=== PATIENT | male | born 1990 | race Caucasian/White ===

== ENCOUNTER 2017-02-16 10:24 | Emergency (ER) | payer SELFPAY ==
[2017-02-16 11:14] VITALS: BP 130/94
--- NOTE | 2017-02-16 11:15 | UC ---
Dental HPI - HPI Summary HPI Summary: 26 y/o WM accompanied by girlfriend presents with right lower tooth pain. He says he's had a tooth abscess here at least 5 times in last year and a half. He is aware he needs to see a dentist, but at this time he does not have the insurance or financial capacity to do so. Today he tells me that the pain began 3 days ago and has been increasing in intensity. He is able to eat and drink, but this is very painful for him. Denies fever, chills, SOB, chest pain, abdominal pain, n/v/d/c - History of Current Complaint Chief Complaint: UCDentalProblem Stated Complaint: ABCESSES IN MOUTH Hx Obtained From: Patient Onset/Duration: Gradual Onset Severity: Severe Pain Intensity: 9 Pain Scale Used: 0-10 Numeric - Allergies/Home Medications Allergies/Adverse Reactions: Allergies Allergy/AdvReac Type Severity Reaction Status Date / Time No Known Allergies Allergy Verified 02/16/17 11:09 PMH/Surg Hx/FS Hx/Imm Hx Other History Of: Negative For: Anticoagulant Therapy - Surgical History Surgical History: Yes Surgery Procedure, Year, and Place: abd hernia as child - Family History Known Family History: Positive: None - Social History Occupation: Unemployed Lives: With Family Alcohol Use: None Alcohol Amount: 18 beers/day Substance Use Type: None Smoking Status (MU): Current Every Day Smoker Type: Cigarettes, Smokeless Tobacco Amount Used/How Often: 1 PPD Review of Systems Constitutional: Negative Skin: Negative ENT: Dental Pain Respiratory: Negative Cardiovascular: Negative Gastrointestinal: Negative All Other Systems Reviewed And Are Negative: Yes Physical Exam Triage Information Reviewed: Yes Appearance: Well-Nourished, Pain Distress Vital Signs: Initial Vital Signs Temp 98.9 F 02/16/17 11:10 Pulse 75 02/16/17 11:10 Resp 20 02/16/17 11:10 BP 130/94 02/16/17 11:10 Pulse Ox 100 02/16/17 11:10 Vital Signs Reviewed: Yes Eyes: Positive: Conjunctiva Clear. Negative: Conjunctiva Inflamed, Discharge ENT: Positive: Pharynx normal, TMs normal, Dental tenderness, Uvula midline. Negative: Pharyngeal erythema, TM bulging, TM dull, TM red, Tonsillar swelling, Tonsillar exudate, Sinus tenderness Dental: Positive: Percussion Tenderness @ - Tooth #19, Gross Decay/Caries @ - Throughout, Abscess @ - Tooth #19, Cellulitis @ - Tooth #19, Other: - Able to open and close his mouth without difficulties.. Negative: Dental Fracture @, Cervical Lymphadenopathy, Bleeding Neck: Positive: Supple, No Lymphadenopathy, Other: - TTP over right lower mandible. No edema or erythema. Respiratory: Positive: Chest non-tender, Lungs clear, Normal breath sounds Cardiovascular: Positive: RRR, No Murmur, Pulses Normal Neurological: Positive: Alert Psychological: Positive: Age Appropriate Behavior Dental Complaint Course/Dx - Course Course Of Treatment: iSTOP checked Reference #: [id number] and okay. Tooth #19 abscess. Information given for low-cost local dentist. - Differential Dx/Diagnosis Differential Diagnosis/Dx: Dental Abscess Provider Diagnoses: Tooth #19 abscess Discharge - Discharge Plan Condition: Stable Disposition: HOME Prescriptions: Clindamycin Cap(NF) [Clindamycin Cap 300 mg Cap(NF)] 300 mg PO TID #30 cap HYDROcodone/ACETAMIN 5-325 MG* [[place] 5-325 TAB*] 1 tab PO Q8H PRN #9 tab MDD 3 PRN Reason: Pain Patient Education Materials: Dental Abscess (ED) Referrals: No Primary Care Phys,NOPCP [Primary Care Provider] - Additional Instructions: If you develop a fever, shortness of breath, chest pain, new or worsening symptoms - please call your PCP or go to the ED. Your blood pressure was high at todays visit. Please see your primary provider within 4 weeks for recheck and re-evaluation.
[2017-02-16] MEDS ORDERED: HYDROcodone/ACETAMIN 5-325 MG* 1 TAB PO ONE (11:20)
== END 2017-02-16 11:30 | disposition home or self-care (01) ==
LOC: UCEAST 10:24
DX: K04.7 Periapical abscess without sinus (principal); R03.0 Elevated blood-pressure reading, without diagnosis of hypertension; F17.210 Nicotine dependence, cigarettes, uncomplicated; F17.290 Nicotine dependence, other tobacco product, uncomplicated
CPT/HCPCS: 99212; G0463

== ENCOUNTER 2017-10-10 16:17 | Emergency (ER) | payer SELFPAY ==
[2017-10-10 16:24] VITALS: BP 121/81
--- NOTE | 2017-10-10 17:30 | UC ---
Dental HPI - HPI Summary HPI Summary: PT WITH H/O POOR DENTITION AND MULTIPLE ABSCESSES IN THE PAST PRESENTS WITH RIGHT UPPER DENTAL PAIN AND FACIAL SWELLING SINCE YESTERDAY. NO FEVER. HAS NOT CALLED A DENTIST - NO DENTAL INSURANCE. - History of Current Complaint Chief Complaint: UCDentalProblem Stated Complaint: FACIAL PAIN Time Seen by Provider: 10/10/17 17:11 Hx Obtained From: Patient Onset/Duration: Gradual Onset, Lasting Days - 1 DAY, Still Present Severity: Moderate Pain Intensity: 6 Pain Scale Used: 0-10 Numeric Aggravating Factor(s): Heat, Cold, Chewing Alleviating Factor(s): Nothing Related History: Previous Dental Care on Same Tooth, Swelling - Allergies/Home Medications Allergies/Adverse Reactions: Allergies Allergy/AdvReac Type Severity Reaction Status Date / Time No Known Allergies Allergy Verified 10/10/17 16:24 PMH/Surg Hx/FS Hx/Imm Hx Previously Healthy: Yes Other History Of: Negative For: Anticoagulant Therapy - Surgical History Surgical History: Yes Surgery Procedure, Year, and Place: Hernia as child - Family History Known Family History: Positive: None Negative: Hypertension - Social History Alcohol Use: Occasionally Alcohol Amount: 18 beers/day Substance Use Type: None Smoking Status (MU): Heavy Every Day Tobacco Smoker Type: Cigarettes, Smokeless Tobacco Amount Used/How Often: 1 PPD Review of Systems Constitutional: Negative Skin: Rash ENT: Dental Pain Respiratory: Negative Cardiovascular: Negative Gastrointestinal: Negative All Other Systems Reviewed And Are Negative: Yes Physical Exam Triage Information Reviewed: Yes Appearance: Well-Appearing, No Pain Distress, Well-Nourished, Other: - RIGHT FACIAL SWELLING Vital Signs: Initial Vital Signs Temp 99.5 F 10/10/17 16:22 Pulse 107 10/10/17 16:22 Resp 18 10/10/17 16:22 BP 121/81 10/10/17 16:22 Pulse Ox 100 10/10/17 16:22 Vital Signs Reviewed: Yes Eyes: Positive: Conjunctiva Clear ENT: Positive: Hearing grossly normal, Pharynx normal Dental: Positive: Percussion Tenderness @ - RIGHT UPPER 1ST AND 2ND PREMOLARS, Gross Decay/Caries @ Neck: Positive: Supple, Nontender, No Lymphadenopathy Respiratory: Positive: No respiratory distress, No accessory muscle use Cardiovascular: Positive: Pulses Normal Abdomen Description: Positive: Soft Musculoskeletal: Positive: No Edema Neurological: Positive: Alert Psychological: Positive: Age Appropriate Behavior Skin: Negative: rashes Dental Complaint Course/Dx - Differential Dx/Diagnosis Provider Diagnoses: DENTAL ABSCESS - #4, #5 Discharge - Sign-Out/Discharge Documenting (check all that apply): Patient Departure All imaging exams completed and their final reports reviewed: No Studies - Discharge Plan Condition: Stable Disposition: HOME Prescriptions: Amoxicillin/Clavulanate TAB* [Augmentin TAB 875*] 875 mg PO BID #20 tab Chlorhexidine MW 0.12% 473ML* [Peridex Mouth Wash 0.12%*] 15 ml SWISH SPIT BID # 1 bottle HYDROcodone/ACETAMIN 5-325 MG* [[place] 5-325 TAB*] 1 tab PO Q6H PRN #12 tab MDD 4 PRN Reason: Pain Patient Education Materials: Dental Abscess (ED) Referrals: No Primary Care Phys,NOPCP [Primary Care Provider] - Additional Instructions: YOU MUST CALL A DENTIST [facility] TO SCHEDULE A FOLLOW-UP APPT. IBUPROFEN MAX DOSE: 600MG (3 TABS) EVERY 6 HRS OR 800MG (4 TABS) EVERY 8 HRS TYLENOL MAX DOSE: 1000MG (2 EXTRA STRENGTH TABS) EVERY 8 HRS OR 650MG (2 REGULAR TABS) EVERY 6 HRS HYDROCODONE/APAP FOR BREAKTHROUGH CALL THE NUMBER BELOW FOR ASSISTANCE IN ESTABLISHING WITH A PCP An additional resource available to assist in finding the appropriate physician for your health care needs is [facility] ([facility]). You may contact them by calling [phone]. - Billing Disposition and Condition Condition: STABLE Disposition: Home
== END 2017-10-10 17:25 | disposition home or self-care (01) ==
LOC: UCEAST 16:17
DX: K04.7 Periapical abscess without sinus (principal); F17.290 Nicotine dependence, other tobacco product, uncomplicated
CPT/HCPCS: 99212; G0463